=== PATIENT | female | born 2000 | race Caucasian/White ===

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

== ENCOUNTER 2019-10-17 13:46 | Outpatient (RCR) | payer BC, OTHER ==
--- NOTE | 2019-07-25 14:55 | NUR ---
ATTEMPT TO PLACE PICC UNSUCCESSFUL X 3. PT AGREES TO RETURN TOMORROW AT 1000 FOR ANOTHER NURSE TO ATTEMPT PLACEMENT. PT TOLERATED WELL. NO SX/SX DISTRESS.
[2019-07-26 11:15] LABS: BASOPHILS % (AUTO) 0 % (0-10); EOSINOPHILS # (AUTO) 0.2 10^3/uL (0.0-0.3); EOSINOPHILS % (AUTO) 8 % (0-10); HEMATOCRIT 34 % (35-52); HEMOGLOBIN 11.5 G/DL (11.5-16.0); LYMPHOCYTES # (AUTO) 0.5 X 10^3 (1.0-4.0); LYMPHOCYTES % (AUTO) 20 % (12-44); MEAN CORPUSCULAR HEMOGLOBIN 30 PG (25-34); MEAN CORPUSCULAR HGB CONC 34 G/DL (32-36); MEAN CORPUSCULAR VOLUME 90 FL (80-99); MEAN PLATELET VOLUME 9.6 FL (7.4-10.4); MONOCYTES # (AUTO) 0.3 X 10^3 (0.0-1.0); MONOCYTES % (AUTO) 15 % (0-12); NEUTROPHILS # (AUTO) 1.3 X 10^3 (1.8-7.8); NEUTROPHILS % (AUTO) 57 % (42-75); PLATELET COUNT 213 10^3/uL (130-400); RED CELL DISTRIBUTION WIDTH 12.7 % (10.0-14.5); WHITE BLOOD COUNT 2.3 10^3/uL (4.3-11.0)
[2019-07-26 11:33] LABS: ALANINE AMINOTRANSFERASE 27 U/L (0-55); ALBUMIN 3.9 GM/DL (3.2-4.5); ALKALINE PHOSPHATASE 63 U/L (40-136); BILIRUBIN,TOTAL 0.3 MG/DL (0.1-1.0); BUN/CREATININE RATIO 13; CALCIUM 9.3 MG/DL (8.5-10.1); CARBON DIOXIDE 21 MMOL/L (21-32); CHLORIDE 108 MMOL/L (98-107); CREATININE SERUM 0.72 MG/DL (0.60-1.30); GFR ESTIMATED > 60; GLUCOSE 79 MG/DL (70-105); MAGNESIUM 1.9 MG/DL (1.6-2.4); POTASSIUM 3.9 MMOL/L (3.6-5.0); SODIUM 136 MMOL/L (135-145); TOTAL PROTEIN 6.4 GM/DL (6.4-8.2); URIC ACID 3.4 MG/DL (2.6-7.2)
[2019-07-26 11:47] LABS: ERYTHROCYTE SEDIMENTATION RATE 6 MM/HR (0-20)
--- NOTE | 2019-07-26 11:48 | Diagnostic Imaging Report ---
INDICATION: PICC line placement. COMPARISON: None available TECHNIQUE: Single radiograph of the chest dated 07/26/2019. FINDINGS: Right-sided PICC line is in place with the distal tip overlying the mid superior vena cava. No evidence of pneumothorax. The cardiac silhouette and pulmonary vasculature within normal limits. The lungs are clear. No pleural effusion. No pneumothorax. No acute osseous abnormality. IMPRESSION: Right-sided PICC line in place with the distal tip within the mid superior vena cava without pneumothorax or additional superimposed acute cardiopulmonary abnormality. Dictated by: Dictated on workstation # [id number]
[2019-07-26 11:50] VITALS: BP 118/78
[2019-07-26 12:16] VITALS: BP 118/78
[2019-08-02 13:20] VITALS: BP 119/70
[2019-08-09 16:45] VITALS: BP 112/82
[2019-08-16 13:01] VITALS: BP 108/81
[2019-08-23 11:03] VITALS: BP 110/66
[2019-09-20 14:05] VITALS: BP 119/80
[~2019-10-17] VITALS: Ht 170.2 cm
[~2019-10-17 13:46] MED LIST changes: -FERRIC CARBOXYMALTOSE (CANCER) 750 MG in NS (IVPB) CANCER CENTER 250 ML IV SCH; +diphenhydrAMINE 50 MG/ML INJ (BENADRYL) IV ONE; +diphenhydrAMINE 50 MG/ML INJ (BENADRYL) ONE
[2019-10-17 14:10] VITALS: BP 111/81
== END 2019-10-23 | disposition home or self-care (01) ==
LOC: SDC 13:46
PROVIDERS: ATTEND Nurse Practitioner Family
DX: D89.40 Mast cell activation, unspecified (principal); E86.0 Dehydration
CPT/HCPCS: 36415; 36569; 71045; 76937; 80053; 82306; 83735; 84550; 85025; 85652; 96374; 99211

== ENCOUNTER 2019-11-22 14:45 | Outpatient (RCR) | payer OTHER ==
[2019-10-29 14:15] VITALS: BP 105/76
[2019-11-22 14:45] VITALS: BP 107/68
== END 2020-01-27 | disposition home or self-care (01) ==
LOC: SDC 14:45
PROVIDERS: ATTEND Nurse Practitioner Family
DX: E55.9 Vitamin D deficiency, unspecified (principal); D89.40 Mast cell activation, unspecified; E86.0 Dehydration
CPT/HCPCS: 99211